=== PATIENT | male | born 1975 | race Caucasian/White ===

== ENCOUNTER 2017-06-07 22:20 | Inpatient (IN) | payer MEDICAID ==
[~2017-06-07] VITALS: Ht 177.8 cm; Wt 78.5 kg
--- NOTE | 2017-06-07 22:20 | NUR ---
Patient was BIBA at this time.
[2017-06-07 22:27] VITALS: BP 157/112
--- NOTE | 2017-06-07 23:15 | NUR ---
Patient taken to bed 03 uti gurney per EMS.
--- NOTE | 2017-06-07 23:21 | NUR ---
41/M biba from home for evaluation of generalized body cramping since approximately 1800 since he got home from work. 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 Pt states she has not had a meal since yesterday but did have one alcoholic drink today. Pt states these symptoms happened in the past but usually pt will eat a meal and will massage him and the symptoms will resolve. Blood glucose in the field 105 per paramedics. Denies medical hx. NKDA. Pt also reports x1 episode of emesis, denies any blood present. Pt arrived with 18 gauge to right forearm established by EMS. Pt received 300 NS bolus from paramedics. Pt placed in bed 3, placed on clinical research monitor, pulse oximetry and blood pressure monitoring. Pt restless, extremeties tense and rigid, moaning, facial grimacing. Pt placed in position of comfort. Awaiting ERMD. Dr. Lester aware of pt condition. Will continue to monitor.
[2017-06-07 23:37] LABS: CARBON DIOXIDE 22.1 mmol/L (21-32); CREATININE 2.4 mg/dL (0.7-1.3); POTASSIUM 4.1 mmol/L (3.5-5.1)
[2017-06-07 23:41] LABS: BASOPHILS # (AUTO) 0.1 K/uL (0.00-0.22); BASOPHILS % (AUTO) 0.9 % (0.0-2.0); EOSINOPHILS % (AUTO) 0.1 % (0.0-4.0); HEMATOCRIT 43.9 % (36-52); HEMOGLOBIN 14.5 g/dL (12.0-18.0); LYMPHOCYTES # (AUTO) 0.4 K/uL (2.0-11.5); MEAN CORPUSCULAR HEMOGLOBIN 32 pg (27-31); MEAN CORPUSCULAR HGB CONC 33 g/dL (33-37); MEAN CORPUSCULAR VOLUME 97 fL (80-94); MONOCYTES # (AUTO) 1.1 K/uL (0.8-1.0); MONOCYTES % (AUTO) 10.9 % (1.7-9.3); NEUTROPHILS # (AUTO) 8.8 K/uL (1.8-7.7); NEUTROPHILS % (AUTO) 84.1 % (42.2-75.2); PLATELET COUNT (AUTO) 132 K/uL (140-450); RED BLOOD CELL COUNT(AUTO) 4.55 MIL/uL (4.20-6.10); RED CELL DISTRIBUTION WIDTH 12.5 % (11.6-13.7); WHITE BLOOD COUNT (AUTO) 10.4 K/uL (4.8-10.8)
[2017-06-07 23:44] LABS: ALBUMIN 4.9 g/dL (3.4-5.0); TOTAL BILIRUBIN 2.9 mg/dL (0.0-1.0)
[2017-06-07] MEDS ORDERED: NACL 0.9% 1,000 ML IV ONE (23:50)
[2017-06-07] MEDS ORDERED: ONDANSETRON 4 MG/2 ML VIAL IVP ONE (23:50)
[2017-06-07] MEDS ORDERED: HYDROmorphone 1 MG/ML AMP IVP ONE (23:50)
--- NOTE | 2017-06-07 23:56 | NUR ---
Dr. Lester at bedside to evaluate patient.
[2017-06-08] MEDS ORDERED: NACL 0.9% 1,000 ML IV ONE ×2 (00:15→01:15)
[2017-06-08 00:36] LABS: CKMB RELATIVE INDEX 0.8 (0.0-2.5); CREATINE KINASE MB 4.9 ng/mL (0-3.6)
--- NOTE | 2017-06-08 00:55 | NUR ---
Pt appears more calm and relaxed. 12/03.
[2017-06-08] MEDS ORDERED: MAG SULF 2000 MG/WATER PREMIX 50 ML IV ONE (01:00)
[2017-06-08] MEDS ORDERED: LORazepam 2 MG/ML VIAL IVP PRN (01:20)
[2017-06-08] MEDS ORDERED: HYDROcodone/APAP 5/325 MG 1 TAB TAB PO PRN (01:20)
[2017-06-08] MEDS ORDERED: ONDANSETRON 4 MG/2 ML VIAL IVP PRN (01:20)
[2017-06-08] MEDS: DEXT 5% /NACL 0.9% 1,000 ML IV SCH ×4 (01:20→22:30)
[2017-06-08] MEDS ORDERED: ACETAMINOPHEN 325 MG TAB PO PRN (01:20)
--- NOTE | 2017-06-08 02:00 | NUR ---
Called for report. Pt unable to take report at this time.
[2017-06-08 02:03] LABS: APPEARANCE,URINE CLEAR (CLEAR); BILIRUBIN,URINE NEGATIVE (NEGATIVE); BLOOD, URINE NEGATIVE (NEGATIVE); COLOR,URINE YELLOW (YELLOW); LEUKOCYTE ESTERASE ,URINE NEGATIVE (NEGATIVE); NITRITE, URINE NEGATIVE (NEGATIVE); UGLUCOSE NEGATIVE (NEGATIVE)
--- NOTE | 2017-06-08 02:04 | NUR ---
Patient resting comfortably in bed. VSS. at bedside.
[2017-06-08 02:10] LABS: BARBITURATE, URINE NEG. ng/ml (NEG <=200); BENZODIAZEPINE, URINE NEG. ng/mL (NEG <=200); CANNABINOID, URINE NEG. ng/mL (NEG <=50); COCAINE, URINE NEG. ng/mL (NEG <=300); OPIATE, URINE NEG. ng/mL (NEG <=2000); PHENCYCLIDINE SCREEN,URINE NEG. ng/mL (NEG <=25)
[2017-06-08 02:13] LABS: RBC,URINE 0-5 (RARE) /HPF (0-5); WBC,URINE 0-5 (RARE) /HPF (0-5)
--- NOTE | 2017-06-08 02:14 | NUR ---
Patient will be admitted to care of Dr. Annie Conde. Admited to Med/Surg. Will go to room 105-B. Belongings list completed. Report to Vee LA.
--- NOTE | 2017-06-08 02:20 | NUR ---
Pt transferred to room 105-B M/S accompanied by EMT Mayra. All belongings sent with patient to 105-B. accompanied pt to room.
[2017-06-08 02:45] VITALS: BP 153/93
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
--- NOTE | 2017-06-08 05:45 | NUR ---
PT RESTING COMFORTABLY IN BED. NO S/S OF DISTRESS NOTED. ALL NEEDS MET, CALL LIGHT WITHIN REACH, WILL CONTINUE TO MONITOR.
[2017-06-08 06:13] LABS: BASOPHILS # (AUTO) 0.2 K/uL (0.00-0.22); EOSINOPHILS # (AUTO) 0.1 K/uL (0-0.4); EOSINOPHILS % (AUTO) 0.9 % (0.0-4.0); HEMATOCRIT 37.7 % (36-52); LYMPHOCYTES # (AUTO) 0.7 K/uL (2.0-11.5); LYMPHOCYTES % (AUTO) 8.9 % (20.5-51.1); MEAN CORPUSCULAR HEMOGLOBIN 33 pg (27-31); MEAN CORPUSCULAR HGB CONC 34 g/dL (33-37); MEAN CORPUSCULAR VOLUME 96 fL (80-94); MONOCYTES # (AUTO) 1.1 K/uL (0.8-1.0); MONOCYTES % (AUTO) 14.3 % (1.7-9.3); NEUTROPHILS # (AUTO) 5.9 K/uL (1.8-7.7); NEUTROPHILS % (AUTO) 72.9 % (42.2-75.2); PLATELET COUNT (AUTO) 97 K/uL (140-450); RED BLOOD CELL COUNT(AUTO) 3.92 MIL/uL (4.20-6.10)
[2017-06-08 06:19] LABS: ANION GAP 15.1 (8-16); CARBON DIOXIDE 23.6 mmol/L (21-32); CREATININE 1.2 mg/dL (0.7-1.3); POTASSIUM 3.7 mmol/L (3.5-5.1)
[2017-06-08 06:23] LABS: MAGNESIUM 2.3 mg/dL (1.8-2.4)
--- NOTE | 2017-06-08 06:56 | NUR ---
PATIENT HAS BEEN SCREENED AND CATEGORIZED MODERATE NUTRITION RISK. PATIENT WILL BE SEEN WITHIN 3-5 DAYS OF ADMISSION. 06/10/17-06/12/17 XIN BUSCH MS, RDN
--- NOTE | 2017-06-08 07:36 | NUR ---
GAVE REPORT TO DAY NURSE AT THE BEDSIDE FOR CONTINUITY OF CARE, PT IN STABLE CONDITION. NO S/S OF DISTRESS NOTED
--- NOTE | 2017-06-08 07:37 | NUR ---
RECEIVED REPORT FROM DBA MANAGER NURSE. PATIENT LYING IN BED WITH FAMILY MEMBER AT BEDSIDE. NO DISTRESS NOTED. AAOX4. RESPIRATIONS EVEN, UNLABORED, ON ROOM AIR. SKIN IS INTACT THROUGHOUT BODY, SKIN IS WARM TO TOUCH, COLOR APPROPRIATE TO ETHNICITY. IV IS INTACT, PATENT, AND INFUSING. REPORTS FEELING GENERALIZED BODY ACHING PAIN 3/10, WHICH IS WITHIN PATIENT'S TOLERABLE LEVEL AT THIS TIME. LUNGS ARE CTA ON ALL LOBES. GENERALIZED WEAKNESS ON B/L UE AND LE. PLAN OF CARE REVIEWED WITH PATIENT/FAMILY MEMBER. PATIENT VERBALIZED UNDERSTANDING. SAFETY MEASURES IN PLACE, CALL LIGHT WITHIN REACH, BED RAILS UPX2, BED WHEELS LOCKED. WILL CONTINUE TO MONITOR.
[2017-06-08 08:00] VITALS: BP 136/91
--- NOTE | 2017-06-08 09:30 | NUR ---
DR. KWONG AT BEDSIDE DISCUSSING PLAN OF CARE WITH PATIENT/FAMILY. WILL CONTINUE TO MONITOR.
--- NOTE | 2017-06-08 09:40 | NUR ---
PATIENT LYING IN BED WITH FAMILY MEMBER AT BEDSIDE. NO DISTRESS NOTED. COMPLAINTS OF GENERALIZED ACHING BODY PAIN 02/02. WILL MEDICATE PER ORDERS. RESPIRATIONS EVEN, UNLABORED, ON ROOM AIR. IV PATENT AND INFUSING. CONTINUES TO HAVE TREMORS ON B/L UE. PATIENT REPORTS TREMORS OCCUR AFTER COMPLETING A FLORY JOB. SAFETY MEASURES IN PLACE, CALL LIGHT WITHIN REACH. WILL CONTINUE TO MONITOR.
--- NOTE | 2017-06-08 11:00 | NUR ---
PATIENT SITTING IN BED WATCHING TV. NO DISTRESS NOTED. DENIES ANY PAIN OR DISCOMFORTS AT THIS TIME. RESPIRATIONS EVEN, UNLABORED, ON ROOM AIR. CONTINUES TO HAVE TREMORS ON B/L UE. SKIN IS INTACT. IV PATENT AND INFUSING. SAFETY MEASURES IN PLACE, CALL LIGHT WITHIN REACH. WILL CONTINUE TO MONITOR.
--- NOTE | 2017-06-08 15:00 | NUR ---
PATIENT LYING IN BED WATCHING TV WITH AT BEDSIDE. NO DISTRESS NOTED. DENIES ANY PAIN OR DISCOMFORTS AT THIS TIME. RESPIRATIONS EVEN, UNLABORED, ON ROOM AIR. CONTINUES TO HAVE TREMORS ON B/L UE. SKIN IS INTACT. IV PATENT AND INFUSING. SAFETY MEASURES IN PLACE, CALL LIGHT WITHIN REACH. WILL CONTINUE TO MONITOR.
[2017-06-08 16:00] VITALS: BP 115/85
--- NOTE | 2017-06-08 17:00 | NUR ---
PATIENT LYING IN BED WITH AT BEDSIDE. PATIENT ASKING TO TAKE A SHOWER. IV DISCONNECTED AND WRAPPED SO PATIENT CAN TAKE A SHOWER. ABLE TO AMBULATE WITH STEADY GAIT. ESCORTED PATIENT TO SHOWER. NOTIFIED PATIENT TO LET NURSE KNOW WHEN SHOWER DONE. WILL CONTINUE TO MONITOR.
--- NOTE | 2017-06-08 19:22 | NUR ---
REPORT GIVEN TO ASSOCIATE DIRECTOR OF BIOSTATISTICS NURSE. PATIENT IN STABLE CONDITION.
--- NOTE | 2017-06-08 19:30 | NUR ---
RECEIVED REPORT FROM AM NURSE. PT RESTING IN BED, AOX4, AMBULATORY, ABLE TO VERBALIZE NEEDS. PT DENIES CHEST PAIN, SOB OR S/S OF ACUTE DISTRESS. IV ACCESS ASYMPTOMATIC, PATENT AND INTACT. IVF INFUSING WELL. DISCUSSED AND REVIEWED PLAN OF CARE WITH PT. PT VERBALIZED UNDERSTANDING. ALL NEEDS MET. SAFETY MEASURES ENSURED. CALL LIGHT WITHIN REACH. WILL CONTINUE TO MONITOR.
[2017-06-08 20:00] VITALS: BP 141/78
--- NOTE | 2017-06-08 20:28 | NUR ---
PT TEMP 99.4, COOLING MEASURES ENSURED. PT ABLE TO AMBULATE INDEPENDENTLY, SLIGHT SHAKING OF HANDS AND BODY NOTED. ALL NEEDS MET. IVF INFUSING WELL. SAFETY MEASURES ENSURED. CALL LIGHT WITHIN REACH. WILL CONTINUE TO MONITOR.
[2017-06-09] VITALS: BP 133/85
--- NOTE | 2017-06-09 00:16 | NUR ---
PT RESTING COMFORTABLY, NO S/S OF ACUTE DISTRESS. ALL NEEDS MET. IVF INFUSING WELL. SAFETY MEASURES ENSURED. CALL LIGHT WITHIN REACH. WILL CONTINUE TO MONITOR.
--- NOTE | 2017-06-09 02:00 | NUR ---
PT RESTING COMFORTABLY IN BED, NO S/S OF ACUTE DISTRESS. ALL NEEDS MET. IVF INFUSING WELL. SAFETY MEASURES ENSURED. CALL LIGHT WITHIN REACH. WILL CONTINUE TO MONITOR.
--- NOTE | 2017-06-09 05:07 | NUR ---
PT SLEEPING COMFORTABLY, NO S/S OF ACUTE DISTRESS. ALL NEEDS MET. IVF INFUSING WELL. SAFETY MEASURES ENSURED. CALL LIGHT WITHIN REACH. WILL CONTINUE TO MONITOR.
[2017-06-09 06:12] LABS: BASOPHILS # (AUTO) 0.3 K/uL (0.00-0.22); BASOPHILS % (AUTO) 4.5 % (0.0-2.0); EOSINOPHILS # (AUTO) 0.1 K/uL (0-0.4); EOSINOPHILS % (AUTO) 1.5 % (0.0-4.0); HEMATOCRIT 39.2 % (36-52); HEMOGLOBIN 13.2 g/dL (12.0-18.0); LYMPHOCYTES # (AUTO) 1.4 K/uL (2.0-11.5); LYMPHOCYTES % (AUTO) 21.2 % (20.5-51.1); MEAN CORPUSCULAR HEMOGLOBIN 33 pg (27-31); MEAN CORPUSCULAR HGB CONC 34 g/dL (33-37); MEAN CORPUSCULAR VOLUME 97 fL (80-94); MONOCYTES # (AUTO) 0.9 K/uL (0.8-1.0); MONOCYTES % (AUTO) 13.6 % (1.7-9.3); NEUTROPHILS % (AUTO) 59.2 % (42.2-75.2); PLATELET COUNT (AUTO) 104 K/uL (140-450); RED BLOOD CELL COUNT(AUTO) 4.03 MIL/uL (4.20-6.10); RED CELL DISTRIBUTION WIDTH 12.4 % (11.6-13.7); WHITE BLOOD COUNT (AUTO) 6.7 K/uL (4.8-10.8)
[2017-06-09 06:48] LABS: ANION GAP 10.4 (8-16); CARBON DIOXIDE 28.5 mmol/L (21-32); CREATININE 0.8 mg/dL (0.7-1.3); POTASSIUM 3.9 mmol/L (3.5-5.1)
--- NOTE | 2017-06-09 07:15 | NUR ---
ENDORSED PLAN OF CARE TO AM NURSE. CONDITION STABLE.
--- NOTE | 2017-06-09 07:16 | NUR ---
RECEIVED REPORT FROM CASING COOKER NURSE. PATIENT SITTING IN BED WATCHING TV. IN STABLE CONDITION, NO DISTRESS NOTED. DENIES ANY PAIN AT THIS TIME. RESPIRATIONS EVEN, UNLABORED, ON ROOM AIR. AAOX4, CALM, COOPERATIVE. LUNGS CTA ON ALL LOBES. SKIN INTACT, WARM TO TOUCH, APPROPRIATE TO ETHNICITY, NO PERIPHERAL EDEMA NOTED. IV INTACT, PATENT, AND INFUSING WITHOUT ANY COMPLICATIONS NOTED. PLAN OF CARE REVIEWED WITH PATIENT. PATIENT VERBALIZED UNDERSTANDING. SAFETY MEASURES IN PLACE, CALL LIGHT WITHIN REACH, BED RAILS UPX2. WILL CONTINUE TO MONITOR.
[2017-06-09] MEDS: DEXT 5% /NACL 0.9% 1,000 ML IV SCH (07:20)
[2017-06-09 08:00] VITALS: BP 139/89
--- NOTE | 2017-06-09 08:40 | NUR ---
PATIENT SITTING IN BED COMFORTABLY WATCHING TV. NO DISTRESS NOTED. RESPIRATIONS EVEN, UNLABORED, ON ROOM AIR. HAS SLIGHT TREMORS ON B/L UE. DENIES ANY PAIN OR DISCOMFORTS AT THIS TIME. AAOX4, PATIENT HAS BEEN VOIDING IN URINAL AT BEDSIDE. SAFETY MEASURES IN PLACE, CALL LIGHT WITHIN REACH. WILL CONTINUE TO MONITOR.
--- NOTE | 2017-06-09 11:00 | NUR ---
PATIENT SITTING IN BED TALKING WITH AT BEDSIDE. NO DISTRESS NOTED. RESPIRATIONS EVEN, UNLABORED, ON ROOM AIR. TREMORS ON B/L UE. DENIES ANY PAIN OR DISCOMFORTS AT THIS TIME. IV INTACT, PATENT AND INFUSING. SAFETY MEASURES IN PLACE, CALL LIGHT WITHIN REACH. WILL CONTINUE TO MONITOR.
--- NOTE | 2017-06-09 11:51 | NUR ---
PT UP OUT OF BED ON HIS OWN WITHOUT PROBLEM, AMBULATES TO BATHROOM WITH STEADY GAIT, AT BEDSIDE.
--- NOTE | 2017-06-09 13:25 | NUR ---
PATIENT SITTING IN BED WITH AT BEDSIDE. PATIENT BEING DISCHARGED HOME TODAY. DISCHARGE INSTRUCTIONS GIVEN, FOLLOW-UP INFORMATION GIVEN. ALL QUESTIONS ANSWERED. PATIENT VERBALIZED COMPLETE UNDERSTANDING. SKIN IS INTACT. IV REMOVED WITH MINIMAL BLOOD AND LUMEN COMPLETELY INTACT. ID BANDS REMOVED. PATIENT TOLERATED PROCEDURE WELL. PATIENT AWAITING FOR SON TO ARRIVE TO TAKE HIM HOME VIA PRIVATE VEHICLE. WILL CONTINUE TO MONITOR.
--- NOTE | 2017-06-09 13:40 | NUR ---
PATIENT SON ARRIVED TO TAKE HIM HOME VIA PRIVATE VEHICLE. PATIENT AMBULATORY WITH STEADY GAIT, REFUSES WHEELCHAIR FOR DISCHARGE TO LOBBY. ESCORTED PATIENT DOWN TO LOBBY VIA AMBULATION WITH AND SON IN CAR. PATIENT DISCHARGED HOME VIA PRIVATE VEHICLE IN STABLE CONDITION.
== END 2017-06-09 13:30 | disposition home or self-care (01) | DRG 469 ==
LOC: MED 22:20 → MTU 06-08 01:24
PROVIDERS: ADMIT Preventive Medicine Preventive Medicine/Occupational Environmental Medicine; ATTEND Preventive Medicine Preventive Medicine/Occupational Environmental Medicine
DX: N17.9 Acute kidney failure, unspecified (principal); E87.0 Hyperosmolality and hypernatremia; M62.82 Rhabdomyolysis; D69.6 Thrombocytopenia, unspecified; E83.41 Hypermagnesemia; E86.0 Dehydration; E83.52 Hypercalcemia; E83.39 Other disorders of phosphorus metabolism; E78.5 Hyperlipidemia, unspecified; N18.9 Chronic kidney disease, unspecified; R73.9 Hyperglycemia, unspecified; R74.0 Nonspecific elevation of levels of transaminase and lactic acid dehydrogenase [LDH]
CPT/HCPCS: 36415; 76770; 80048; 80053; 80305; 81001; 82550; 82553; 83735; 84100; 85025; 87081; 87086; 93005; 96374; 96375; 99285; J1170; J2405; J3475; J7030; J7042; Q0092

== ENCOUNTER 2017-10-01 11:58 | Emergency (ER) | payer SELFPAY ==
[~2017-10-01] VITALS: Ht 180.3 cm; Wt 90.7 kg
[2017-10-01 12:00] VITALS: BP 169/103
--- NOTE | 2017-10-01 12:02 | NUR ---
Patient BIBA to bed 2 at this time.
--- NOTE | 2017-10-01 12:17 | NUR ---
41/M biba found stumbling walking on the street by PD. Pt was pulled over by PD and questioned. Pt admits to drinking alcohol heavily last night. Denies any intake this am. Pt states "I was walking home." Pt reports having arthritic knees bilaterally which is why he was stumbling. Pt also c/o left rib pain. Pt had an injury 6 weeks ago and seen here 2 weeks ago and was told he had a hairline fracture. Pt denies any recent injury or trauma between now and 2 weeks ago. Lungs clear bilaterally. AOX4, clear speech. VSS. Pt is calm and relaxed at this time.
--- NOTE | 2017-10-01 14:11 | NUR ---
Pt in x-ray at this time.
--- NOTE | 2017-10-01 14:17 | NUR ---
Pt returned from x-ray and placed in bed 2.
[2017-10-01 16:25] VITALS: BP 154/98
--- NOTE | 2017-10-01 16:25 | NUR ---
Patient discharged with v/s stable. Written and verbal after care instructions given and explained. Patient alert, oriented and verbalized understanding of instructions. Patient w/c assisted to ER lobby to wait for his taxi. All questions addressed prior to discharge. ID band removed. Patient advised to follow up with PMD. Rx of Motrin 600mg and Tramadol Hydrochloride 50mg given. Patient educated on indication of medication including possible reaction and side effects. Opportunity to ask questions provided and answered.
== END 2017-10-01 16:25 | disposition home or self-care (01) ==
LOC: MED 11:58
DX: S22.32XA Fracture of one rib, left side, initial encounter for closed fracture (principal); M25.561 Pain in right knee; X58.XXXA Exposure to other specified factors, initial encounter; Y93.89 Activity, other specified; Y92.89 Other specified places as the place of occurrence of the external cause; Y99.8 Other external cause status
CPT/HCPCS: 29505; 71101; 73565; 99284

== ENCOUNTER 2018-02-14 16:52 | Emergency (ER) | payer SELFPAY ==
[~2018-02-14] VITALS: Ht 180.3 cm; Wt 74.8 kg
--- NOTE | 2018-02-14 16:59 | NUR ---
PT AMBULATED TO BED3.
[2018-02-14 17:00] VITALS: BP 157/100
--- NOTE | 2018-02-14 17:11 | NUR ---
42/M BIB SELF c/o left shoulder injury during work >2 wks as per pt---has been seen by pmd left shoulder x-ray completed 01/31/2018, no fx or discolocation. was referred for ct or mri of shoulder. able to touch abdomen and forehead with left hand; +grimace upon attempt. +2 radial pulse <3 sec cap refill. AAOX4 WITH EVEN AND STEADY GAIT; LUNGS CLEAR BL. PATIENT STATES PAIN OF 10/10 AT THIS TIME. PATIENT POSITIONED FOR COMFORT; HOB ELEVATED; BEDRAILS UP X2; BED DOWN. ER MD MADE AWARE OF PT STATUS.
--- NOTE | 2018-02-14 17:20 | NUR ---
DR BENITEZ EVALUATING PT AT BEDSIDE
[2018-02-14] MEDS ORDERED: KETOROLAC 60 MG/2 ML VIAL IM ONE (17:40)
[2018-02-14 18:06] VITALS: BP 132/91
--- NOTE | 2018-02-14 18:06 | NUR ---
Patient discharged with v/s stable. Written and verbal after care instructions given and explained. Patient verbalized understanding. Ambulatory with steady gait. All questions addressed prior to discharge. Advised to follow up with PMD.
== END 2018-02-14 18:06 | disposition home or self-care (01) ==
LOC: MED 16:52
DX: M25.512 Pain in left shoulder (principal)
CPT/HCPCS: 96372; 99283; J1885

== ENCOUNTER 2018-11-12 22:45 | Emergency (ER) | payer SELFPAY ==
[~2018-11-12] VITALS: Ht 180.3 cm; Wt 83.9 kg
[2018-11-12 22:45] VITALS: BP 191/124
--- NOTE | 2018-11-12 22:45 | NUR ---
PATIENT [employer] TO ER CHAIR [place]
[2018-11-12 22:50] VITALS: BP 191/124
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
--- NOTE | 2018-11-12 23:04 | NUR ---
Patient being evaluated by physician.
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
== END 2018-11-12 23:18 ==
LOC: MED 22:45
DX: M19.90 Unspecified osteoarthritis, unspecified site (principal); Z02.89 Encounter for other administrative examinations; V89.2XXA Person injured in unspecified motor-vehicle accident, traffic, initial encounter; Y93.89 Activity, other specified; Y92.89 Other specified places as the place of occurrence of the external cause; Y99.8 Other external cause status
CPT/HCPCS: 99283